=== PATIENT | female | born 1935 | race Caucasian/White ===

== ENCOUNTER 2021-08-28 11:59 | Emergency (ER) | payer MEDICARE | END 2021-08-28 14:24 | disposition home or self-care (01) | LOC: MADERS 11:59 | DX: I10 Essential (primary) hypertension (principal); R51.9 Headache, unspecified; R29.700 NIHSS score 0; F03.90 Unspecified dementia, unspecified severity, without behavioral disturbance, psychotic disturbance, mood disturbance, and anxiety; Z79.899 Other long term (current) drug therapy | CPT/HCPCS: 99283 ==